=== PATIENT | female | born 1980 | race Caucasian/White ===

== ENCOUNTER 2016-11-06 21:52 | Observation (INO) ==
[2016-11-06] MEDS: Ipratropium/Albuterol Neb 3 ML IH ONE ×2 (22:02→22:22)
--- NOTE | 2016-11-06 22:07 | Emergency Department Note ---
Disposition Clinical Impression: Asthma exacerbation, Hypoxia, Sinus congestion, Viral conjunctivitis Disposition: Still a Patient Condition: Fair Referrals: NO,PCP [Non-Partnered Physician] - Forms: ED Satisfaction Letter Time of Disposition: 23:11 SOB HPI - General Chief Complaint: ED Shortness of Breath/Dyspnea Stated Complaint: CARMITA/Asthma Time Seen by Provider: 11/06/16 21:54 Source: patient, EMS Mode of arrival: EMS Limitations: no limitations Nursing Notes Reviewed: Yes Vital Signs Reviewed: Yes - History of Present Illness Patient is a 35-year-old female with past medical history of hypertension and asthma. She presents today via EMS due to respiratory distress. Patient said that she has been having runny nose, sinus congestion, chest congestion, shortness of breath and wheeze since this morning that has progressively gotten worse. She usually takes home albuterol as needed for shortness of breath and wheeze, however, her home nebulizer is broken so she has not had any of this medication today. She denies any previous episodes of asthma exacerbations that have required her to come to the hospital. She is not on any daily steroids. Patient denies any productive cough, chest pain, fevers, vomiting, abdominal pain, diarrhea, changes in bowel or bladder habits. She does admit to some mild nausea. - Related Data Home Medications Medication Instructions Recorded Confirmed Albuterol Sulfate [Albuterol 2 puff IH PRN PRN 11/22/15 09/17/16 Inhaler] Budesonide/Formoterol 160/4.5 1 puff IH DAILY 11/22/15 09/17/16 [Symbicort 160/4.5] Diazepam [Valium] 10 mg PO BID 11/22/15 09/17/16 Fluticasone Propionate [Flonase 9.9 ml NS DAILY 11/22/15 09/17/16 Allergy Relief] Gabapentin [Gralise] 300 mg PO TID 11/22/15 09/17/16 Levocetirizine Dihydrochloride 5 mg PO DAILY 11/22/15 09/17/16 [Xyzal] Lisinopril-HCTZ 10-12.5 [Prinzide 1 each PO DAILY 11/22/15 09/17/16 10-12.5] Loperamide [Imodium] 2 mg PO Q4HR 11/22/15 09/17/16 Omeprazole [PriLOSEC] 40 mg PO DAILY 11/22/15 09/17/16 OxyCODONE/APAP 5/325 [Percocet 1 each PO DAILY 11/22/15 09/17/16 5/325 MG] Ranitidine HCl [Zantac] 150 mg PO BID 11/22/15 09/17/16 RisperiDONE [RisperDAL] 3 mg PO DAILY 11/22/15 09/17/16 Cyclobenzaprine [Flexeril] 5 mg PO HS 03/19/16 09/17/16 Duloxetine HCl [Cymbalta] 60 mg PO HS 03/19/16 09/17/16 Escitalopram [Lexapro] 10 mg PO DAILY 03/19/16 09/17/16 Previous Rx's Medication Instructions Recorded Cyclobenzaprine [Flexeril] 10 mg PO HS #20 tablet 11/26/15 Ondansetron ODT [Zofran ODT] 4 mg SL Q6HR #12 tab.rapdis 12/17/15 Loratadine/Pseudophed (12 HR) 1 each PO BID #15 tablet 02/27/16 [Claritin D (12HR)] Doxycycline Hyclate 100 mg PO BID #20 tablet. 04/09/16 Nystatin POWDER [Nystop] 1 appl TP BID #30 gm 04/09/16 Diphenoxylate/Atropine [Lomotil 1 each PO QID #10 tablet 04/16/16 2.5 mg/0.025 mg] Promethazine [Phenergan] 12.5 mg PO Q6HR #20 tablet 04/16/16 Promethazine [Phenergan] 25 mg PO Q8HR PRN #12 tablet 06/05/16 Cyclobenzaprine [Flexeril] 10 mg PO TID #30 tablet 07/03/16 Clindamycin [Cleocin] 300 mg PO BID #20 capsule 07/12/16 Mupirocin [Bactroban Oint] 1 appl TP BID #1 tube 07/12/16 Diclofenac Sodium [Voltaren] 50 mg PO Q8HR #30 tablet. 08/10/16 FentaNYL PATCH [Duragesic] 50 mcg TD Q72H #1 patch.td72 08/10/16 Dicyclomine HCl [Bentyl] 20 mg PO DAILY #10 tablet 09/03/16 Cefdinir [Omnicef] 300 mg PO BID 10 Days 09/06/16 Clindamycin [Cleocin] 300 mg PO BID 10 Days 09/06/16 Dicyclomine [Bentyl] 10 mg PO DAILY PRN #30 capsule 09/25/16 Ondansetron ODT [Zofran ODT] 4 mg SL Q6HR #14 tab.rapdis 09/25/16 Allergies Allergy/AdvReac Type Severity Reaction Status Date / Time Amoxicillin [From Augmentin] Allergy Hives Verified 10/07/16 18:38 ciprofloxacin [From Cipro] Allergy Hives Verified 10/07/16 18:38 clavulanic acid Allergy Hives Verified 10/07/16 18:38 [From Augmentin] levofloxacin [From Levaquin] Allergy Nightmare Verified 10/07/16 18:38 Sulfa (Sulfonamide Allergy Hives Verified 10/07/16 18:38 Antibiotics) sulfamethoxazole Allergy Hives Verified 10/07/16 18:38 [From Bactrim] terbinafine Allergy Hives Verified 10/07/16 18:38 trimethoprim [From Bactrim] Allergy Hives Verified 10/07/16 18:38 Constitutional: Denies: fever ENT ED: Reports: congestion. Denies: ear pain, throat pain Cardiovascular: Denies: chest pain, palpitations Respiratory: Reports: cough, dyspnea, wheezes. Denies: sputum production Gastrointestinal: Denies: abdominal pain, nausea, vomiting, diarrhea Genitourinary: Denies: urgency, dysuria, frequency Musculoskeletal: Denies: back pain Integumentary: Denies: rash Past Medical History - Past Medical History Attestation: Yes The following information was validated with the patient. Source: patient Medical history: Reports: asthma, cancer, GERD, hyperlipidemia, hypertension, migraine Surgical history: Reports: cholecystectomy, orthopedic, other, other Psychiatric history: Reports: anxiety, bipolar, depression [employer]PER[employer]ENT [employer]SPORTATION history: Reports: bilateral tubal ligation - Social History Smoking Status: Current every day smoker Smokeless Tobacco Status: No Alcohol use: Reports: none Drug use: Reports: none Physical Exam - General Limitations: no limitations General appearance: alert - Head Head exam: atraumatic, normocephalic, normal inspection - Eye Eye exam: Present: PERRL, EOMI, conjunctival injection (Bulbar conjunctival injection bilaterally, no matting or exudates.). Absent: periorbital swelling - ENT ENT exam: normal oropharynx, mucous membranes moist, other (Sinus congestion and rhinorrhea present) - Neck Neck exam: Present: normal inspection, full ROM, trachea midline - Chest Chest inspection: Present: normal inspection, symmetric chest wall rise - Respiratory Respiratory exam: Present: wheezes (Significant wheeze throughout all lung hicks) - Cardiovascular Cardiovascular exam: Present: normal rhythm, tachycardia, normal heart sounds - Abdominal Exam Abdominal exam: Present: soft, Non-Tender. Absent: tenderness, distention, guarding, rebound, rigidity - Extremities Exam Extremities exam: Present: normal inspection, full ROM. Absent: tenderness, pedal edema - Back Exam Back exam: Present: normal inspection, full ROM. Absent: tenderness - Neurological Exam Neurological exam: Present: alert, oriented X3 - Psychiatric Psychiatric exam: Present: normal affect, normal mood - Skin Skin exam: Present: warm, dry, intact, normal color Course Course Narrative: Patient was tachycardic and hypoxic on presentation. She is placed on nasal cannula oxygen and went from 85% up to 90s. Patient has significant wheezes throughout lung hicks. She also has conjunctival injection bilaterally with clear drainage but no signs of infection. DuoNeb has been ordered 3, Solu- Medrol given. Will obtain EKG, chest x-ray, troponin. This is likely an asthma exacerbation, possibly due to adenovirus due to upper respiratory symptoms, conjunctivitis that is consistent with a viral etiology, significant wheeze on exam. 23:10 Patient signed out to Dr. Moore and Marcio Medrano for further care and dispo. Vital Signs Temperature 98.2 F 11/06/16 21:52 Pulse Rate 101 11/06/16 21:52 Respiratory Rate 26 11/06/16 21:52 Blood Pressure 148/95 11/06/16 21:52 O2 Sat by Pulse Oximetry 85 L 11/06/16 21:52 Temperature 98.2 F 11/06/16 21:52 Pulse Rate 99 11/06/16 22:37 Respiratory Rate 20 11/06/16 22:37 Blood Pressure 141/80 11/06/16 22:37 O2 Sat by Pulse Oximetry 95 11/06/16 22:37 Oxygen Delivery Oxygen Delivery Nasal Cannula Shortness of Breath/Dyspnea - [facility] Narrative Medical decision making narrative: Patient was tachycardic and hypoxic on presentation. She is placed on nasal cannula oxygen and went from 85% up to 90s. Patient has significant wheezes throughout lung hicks. She also has conjunctival injection bilaterally with clear drainage but no signs of infection. DuoNeb has been ordered 3, Solu- Medrol given. Will obtain EKG, chest x-ray, troponin. This is likely an asthma exacerbation, possibly due to adenovirus due to upper respiratory symptoms, conjunctivitis that is consistent with a viral etiology, significant wheeze on exam. 23:10 Patient signed out to Dr. Moore and Marcio Medrano for further care and dispo. - Medical Records Medical records reviewed: Yes I reviewed the patient's medical records. - Lab Data Lab results reviewed: Yes I reviewed the patient's lab results. Result diagrams: 11/06/16 22:48 11/06/16 22:48 Lab Results 11/06/16 11/06/16 Range/Units 22:48 22:48 WBC 11.4 H (4.3-11.1) K/mcL RBC 4.68 (3.82-4.97) M/mcL Hgb 14.2 (11.5-15.4) g/dL Hct 44.8 (35.3-44.9) % MCV 95.7 (83.0-100.0) fL MCH 30.3 (28.0-33.3) pg MCHC 31.7 (31.6-35.5) g/dL RDW 13.9 (11.5-14.5) % Plt Count 218 (140-400) K/mcL MPV 10.4 (9.4-12.4) fL Immature Gran % 0.4 (0-4) % Seg Neutrophils % 57.3 % Lymphocytes % 35.0 % Monocytes % 5.7 % Eosinophils % 1.1 % Basophils % 0.5 % Neutrophils # 6.5 (1.6-8.9) K/mcL Lymphocytes # 4.0 (0.6-4.6) K/mcL Monocytes # 0.7 (0.0-1.3) K/mcL Eosinophils # 0.1 (0.0-0.6) K/mcL Basophils # 0.1 (0.0-0.2) K/mcL Sodium 138 (136-145) mEq/L Potassium 4.0 (3.5-4.5) mEq/L Chloride 103 (98-109) mEq/L Carbon Dioxide 24 (19-29) mEq/L BUN 9 (7-20) mg/dL Creatinine 0.69 (0.57-1.11) mg/dL Est GFR ( Amer) > 60 (> 60) Est GFR (Non-Af Amer) > 60 (> 60) BUN/Creatinine Ratio 13 (6-26) Glucose 161 H (70-99) mg/dL Calculated Osmolality 288 (280-300) Calcium 9.6 (8.6-10.8) mg/dL - Radiology Data Radiology results reviewed: Yes I reviewed the patient's radiology results. - EKG Data EKG attestation: Yes I reviewed and interpreted this EKG. EKG results narrative: 11/06/2016 at 22:00. Sinus rhythm. Normal axis. Rate 95. QTc 42. QRS 86. No acute ST elevation or depression. S.B.A.R. - S.B.A.R. Situation: Demographics, MOA Background: Presenting Complaint, Relevant PMH, Meds, & Allergies Assessment: Vital Signs, Course and respsone to treatment, Exam Concerns, Patient/Family Expectation, Pertinant Lab Results, Outstanding Labs Recommendation: Barrier(s) to disposition, Recommendation based on pending studies, treatments, or consults S.B.A.R. Report Given to: Dr. Moore and Marcio Medrano SRiriB.AHawk Repor Time: 23:10 Attestation Statement - Attestation Attestation: I examined this patient and my medical decision-making was reviewed with the POSTAL SUPPORT EMPLOYEE/PA/Advanced Practice Nurse/Resident Physician. I agree with the documented findings, disposition and treatment plan as described except to the extent set forth below. Patient presents to the emergency department difficulty in breathing. Patient complains of upper respiratory symptoms of congestion cough today. History of asthma. On examination she is tachypneic. Audibly wheezing. Hypoxic at 85% on room air. Obese. Plan. Likely URI exacerbating her asthma. steroids. X- ray and labs. Reevaluate.
[2016-11-06] MEDS: methylPREDNISolone 125 MG/2 ML VIAL IVP ONE ×2 (22:18→22:31)
[2016-11-06 22:57] LABS: Basophils # 0.1 K/mcL (0.0-0.2); Basophils % 0.5 %; Eosinophils # 0.1 K/mcL (0.0-0.6); Eosinophils % 1.1 %; Hematocrit 44.8 % (35.3-44.9); Hemoglobin 14.2 g/dL (11.5-15.4); Immature Granulocytes % 0.4 % (0-4); Mean Corpuscular HGB Conc 31.7 g/dL (31.6-35.5); Mean Corpuscular Hemoglobin 30.3 pg (28.0-33.3); Mean Corpuscular Volume 95.7 fL (83.0-100.0); Mean Platelet Volume 10.4 fL (9.4-12.4); Monocytes # 0.7 K/mcL (0.0-1.3); Monocytes % 5.7 %; Neutrophils # 6.5 K/mcL (1.6-8.9); Platelet Count 218 K/mcL (140-400); Red Blood Count 4.68 M/mcL (3.82-4.97); Red Cell Distribution Width 13.9 % (11.5-14.5); Segmented Neutrophils % 57.3 %
[2016-11-06 23:09] LABS: BUN/Creatinine Ratio 13 (6-26); Blood Urea Nitrogen 9 mg/dL (7-20); Calcium 9.6 mg/dL (8.6-10.8); Carbon Dioxide 24 mEq/L (19-29); Chloride 103 mEq/L (98-109); Glucose 161 mg/dL (70-99); Osmolality,Calculated 288 (280-300); Sodium 138 mEq/L (136-145); eGFR For African Americans > 60 (> 60); eGFR For Non-African Americans > 60 (> 60)
[2016-11-07] MEDS ORDERED: Naloxone 0.4 MG/ML INJ IVP PRN (02:27)
[2016-11-07] MEDS ORDERED: Albuterol Neb 0.63 MG/3 ML VIAL IH PRN (02:33)
--- NOTE | 2016-11-07 02:38 | Internal Med History&Physical ---
Date of Encounter: 11/07/16 Time of Encounter: 02:37 Assessment and Plan (1) Asthma exacerbation Current visit: Yes Status: Acute Treat with systemic steroids - pt received IV Solu-Medrol. As the patient is improving, recheck to oral prednisone. Continue bronchodilators. If the patient improves, consider discharge later in the day. (2) Hyperglycemia Current visit: Yes Status: Acute Patient has significant family history of diabetes mellitus. Will check for hemoglobin A1c. (3) Hypertension Current visit: Yes Status: Acute Continue home antihypertensives Qualifiers: Hypertension type: essential hypertension Qualified Code(s): I10 - Essential (primary) hypertension (4) Tobacco abuse Current visit: Yes Status: Chronic Advised smoking cessation. (5) GERD (gastroesophageal reflux disease) Current visit: Yes Status: Chronic Continue omeprazole Qualifiers: Esophagitis presence: esophagitis presence not specified Qualified Code(s) : K21.9 - Gastro-esophageal reflux disease without esophagitis Internal Medicine - H&P: HPI Chief complaint: Shortness apparent Admitted From: Emergency Dept Plans for Post Hospital Care: Home History of present illness: Ms. Abbott is a 35 year old female with past medical history significant for asthma, HTN. She present to the emergency department with history of fairly sudden onset of shortness of breath when she was at home. She reports feeling short of breath with wheezing. She reports h/o upper respiratory tract infection for a few days. She reports cough with no significant expectation. She denies chest pain, fever, chills, nausea, vomiting. She denies abdominal pain, urinary or bowel symptoms. She was evaluated in the emergency department and that was thought to have acute exacerbation of asthma. She was treated with bronchodilators and intravenous steroids. She felt significantly improved after treatment. She is admitted to the hospitalist was for further management. Past Med Surg Social Fam HX - Past Medical History Medical history: asthma, cancer, GERD, hyperlipidemia, hypertension, migraine Psychiatric history: anxiety, bipolar, depression - Past Surgical History Surgical History: cholecystectomy, orthopedic, other, other - Social History Smoking Status: Current every day smoker Packs per day: 1 Smokeless Tobacco Status: No Alcohol use: none Drug use: none - Family History Mother Living Status: Still Living Hx Family Cardiac Disorders: Yes (CHF) Hx Family Respiratory Disorders: Yes Internal Medicine - H&P: Meds Diazepam [Valium] 10 mg PO TID 11/22/15 [History] Fluticasone Propionate [Flonase Allergy Relief] 9.9 ml NS DAILY 11/22/15 [ History] Gabapentin [Gralise] 300 mg PO TID 11/22/15 [History] Levocetirizine Dihydrochloride [Xyzal] 5 mg PO HS 11/22/15 [History] Loperamide [Imodium] 2 mg PO Q4HR PRN 11/22/15 [History] Omeprazole [PriLOSEC] 40 mg PO DAILY 11/22/15 [History] OxyCODONE/APAP 5/325 [Percocet 5/325 MG] 10 mg PO TID 11/22/15 [History] Ranitidine HCl [Zantac] 150 mg PO BID 11/22/15 [History] RisperiDONE [RisperDAL] 3 mg PO DAILY 11/22/15 [History] Cyclobenzaprine [Flexeril] 5 mg PO HS 03/19/16 [History] Duloxetine HCl [Cymbalta] 60 mg PO HS 03/19/16 [History] Escitalopram [Lexapro] 10 mg PO DAILY 03/19/16 [History] Albuterol Neb [AccuNeb] 1 aerosol .ROUTE TID PRN 11/07/16 [History] Amoxicillin/Clavulanate [Augmentin] 875 mg PO BIDWM 11/07/16 [History] Ciprofloxacin/Dex *EAR* Susp [Ciprodex *EAR* Susp] 4 drop LEFT EAR BID 11/07/16 [History] Lisinopril [Zestril] 20 mg PO DAILY 11/07/16 [History] Naproxen [Naprosyn] 500 mg PO DAILY 11/07/16 [History] Allergies Amoxicillin [From Augmentin] Allergy (Verified 10/07/16 18:38) Hives ciprofloxacin [From Cipro] Allergy (Verified 10/07/16 18:38) Hives clavulanic acid [From Augmentin] Allergy (Verified 10/07/16 18:38) Hives levofloxacin [From Levaquin] Allergy (Verified 10/07/16 18:38) Nightmare Sulfa (Sulfonamide Antibiotics) Allergy (Verified 10/07/16 18:38) Hives sulfamethoxazole [From Bactrim] Allergy (Verified 10/07/16 18:38) Hives terbinafine Allergy (Verified 10/07/16 18:38) Hives trimethoprim [From Bactrim] Allergy (Verified 10/07/16 18:38) Hives All Systems PM: A 10-system review of systems was performed and is negative for pertinent findings except as documented above in the HPI. - Constitutional Vitals: Temp Pulse Resp BP Pulse Ox 98.1 F 83 16 117/63 96 11/07/16 01:48 11/07/16 01:48 11/07/16 01:48 11/07/16 01:48 11/07/16 01:48 Exam: General: Not in acute distress at the time of my evaluation. Obese HEENT: Oral mucosa is moist. No conjunctival palor or scleral icterus Neck: No obvious neck swellings Lungs: Bilateral air entry present. No significant wheeze Cardiac: Regular rate and rhythm. No significant murmurs Abdomen: Soft, non tender. Bowel sounds present Genitourinary: No fleming catheter Neurological: Alert and oriented. No gross localizing deficits Psych: Not aggressive or agitated Extremities: Mild leg edema Skin: No generalized rash Internal Med - H&P Results - Labs CBC & Chem 7: 11/06/16 22:48 11/06/16 22:48 - Impressions ITS Impressions Chest X-Ray 11/06/16 21:54 IMPRESSION: No acute cardiopulmonary disease. D/ / Edinson Cano MD / Edinson Cano MD Interpreting Provider: Edinson Cano MD - VTE Reasons for not Prescribing Prophylaxis: Treatment not Indicated - Low risk for VTE
[2016-11-07] MEDS: Acetaminophen 325 MG TABLET PO PRN ×2 (03:32→15:13)
--- NOTE | 2016-11-07 05:00 | Emergency Department Note ---
START Narrative - START START: For this encounter, I have reviewed the resident, WELDING MACHINE OPERATOR AR[employer], or PA documentation, treatment plan, and medical decision making; and I have had face to face time with this patient. 54-year-old male received in signout from Dr. Trivedi pending admission to the hospital for acute asthmatic exacerbation. Patient was admitted to the hospital without difficulty. Patient denied further complaints or concerns. Patient satting well on nasal cannula oxygen however she states that she desaturated when removed from O2.
[2016-11-07 05:44] LABS: Hemoglobin A1C 5.6 %
[2016-11-07] MEDS: *HR* OxyCODONE/APAP 5/325 TABLET PO SCH ×2 (07:35→15:09)
[2016-11-07] MEDS: diazePAM 10 MG TABLET PO SCH ×2 (07:35→15:09)
[2016-11-07] MEDS: Gabapentin 300 MG CAPSULE PO SCH ×2 (07:35→15:09)
[2016-11-07] MEDS ORDERED: Lisinopril 20 MG TABLET PO SCH (09:00)
[2016-11-07] MEDS ORDERED: NON-FORMULARY MEDICATION 1 EACH EACH (Ranitidine Hcl [Zantac] 150 MG) PO SCH (09:00)
[2016-11-07] MEDS ORDERED: RisperiDAL 3 MG TABLET PO SCH (09:00)
[2016-11-07] MEDS ORDERED: predniSONE 20 MG TABLET PO SCH (09:00)
[2016-11-07] MEDS ORDERED: Fluticasone Propionate Nasal 50 MCG/SPRAY BOTTLE NS SCH (09:00)
[2016-11-07] MEDS ORDERED: Ciprofloxacin/Dex *EAR* Susp 7.5 ML BOTTLE LEFT EAR SCH (09:00)
[2016-11-07] MEDS: Ipratropium/Albuterol Neb 3 ML IH PRN ×2 (10:35→16:24)
--- NOTE | 2016-11-07 10:45 | Electrocardiograph Report ---
[place] [id number] Test Date: 2016-11-06 Pat Name: Conchita Abbott Department: 105 Room: 3B Gender: F Machinery Rigger: : [id number] Requested By: Renetta See Order Number: [id number] Reading MD: Conchita Sterling Measurements Intervals Lane Rate: 95 P: 16 TN: 156 QRS: 4 QRSD: 86 T: 40 QT: 350 QTc: 402 Interpretive Statements SINUS RHYTHM LOW QRS VOLTAGE IN PRECORDIAL LEADS [QRS DEFLECTION < 1.0 mV IN CHEST LEADS] Electronically Signed On 11-07-2016 10:43:38 EST by Conchita Sterling
[2016-11-07 11:02] VITALS: BP 151/72
[2016-11-07] MEDS ORDERED: Nicotine 21 MG PATCH.TD24 TD SCH (12:00)
[2016-11-07] MEDS ORDERED: Nystatin POWDER 30 GM BOTTLE TP SCH (15:30)
--- NOTE | 2016-11-07 15:31 | Discharge Summary ---
Date of Encounter: 11/07/16 Time of Encounter: 10:20 - Discharge Diagnosis (1) Sinusitis Priority: Primary Status: Acute Comments: Continue Augmentin for 7 days Qualifiers: Sinusitis location: unspecified location Chronicity: unspecified Qualified Code(s): J32.9 - Chronic sinusitis, unspecified (2) Asthma exacerbation Priority: Primary Status: Acute Comments: Improved D/C home with Albuterol MDI prn, nebs prn, prednisone taper Smoking cessation discussed extensively, patient appeared non-chalant to quit NRT prescribed Hypoxia improved, saturating 94-95% on room air Encourage weight loss Patient stated she had a PFT done, seen, reversible obstructive airway pattern, follow up with PCP She also stated insurance does not cover symbicort, changed to advair Resume other home meds (3) Hyperglycemia Priority: Primary Status: Acute Comments: Secondary to steroids A1C checked was 5.6% patient with hx of pre-Dm and strong family hx of DM Lifestyle modification encouraged (4) Hypertension Priority: Secondary Status: Chronic Comments: Continue home meds Qualifiers: Hypertension type: essential hypertension Qualified Code(s): I10 - Essential (primary) hypertension (5) Viral conjunctivitis Priority: Secondary Status: Chronic (6) GERD (gastroesophageal reflux disease) Priority: Secondary Status: Chronic Qualifiers: Esophagitis presence: esophagitis presence not specified Qualified Code(s) : K21.9 - Gastro-esophageal reflux disease without esophagitis (7) Tobacco abuse Priority: Secondary Status: Chronic - Discharge Medications Home Medications: Diazepam [Valium] 10 mg PO TID 11/22/15 [History] Gabapentin [Gralise] 300 mg PO TID 11/22/15 [History] Levocetirizine Dihydrochloride [Xyzal] 5 mg PO HS 11/22/15 [History] Loperamide [Imodium] 2 mg PO Q2H PRN 11/22/15 [History] Omeprazole [PriLOSEC] 40 mg PO DAILY 11/22/15 [History] OxyCODONE/APAP 5/325 [Percocet 5/325 MG] 1 tab PO Q8H PRN 11/22/15 [History] Ranitidine HCl [Zantac] 150 mg PO BID 11/22/15 [History] RisperiDONE [RisperDAL] 3 mg PO HS 02/23/16 [History] Cyclobenzaprine [Flexeril] 5 mg PO HS 03/19/16 [History] Duloxetine HCl [Cymbalta] 60 mg PO HS 03/19/16 [History] Escitalopram [Lexapro] 10 mg PO DAILY 03/19/16 [History] Albuterol Neb [AccuNeb] 0.63 mg IH Q4H PRN #20 vial.neb 11/07/16 [Rx] Albuterol Neb [AccuNeb] 0.63 mg IH TID PRN 11/07/16 [History] Albuterol Sulfate [Albuterol Inhaler] 1 puff IH Q4H PRN #1 inhaler 11/07/16 [Rx] Budesonide/Formoterol 160/4.5 [Symbicort 160/4.5] 2 puff IH BID 11/07/16 [ History] Ciprofloxacin/Dex *EAR* Susp [Ciprodex *EAR* Susp] 4 drop LEFT EAR BID 11/07/16 [History] Fluconazole [Diflucan] 150 mg PO QWEEK 11/07/16 [History] Fluticasone Propionate Nasal [Flonase] 50 mcg NS DAILY #1 bottle 11/07/16 [Rx] Fluticasone/Salmeterol [Advair 250-50 Diskus] 1 each IH BID #2 blst.w.dev [Rx] Lisinopril [Zestril] 20 mg PO DAILY 11/07/16 [History] Naproxen [Naprosyn] 500 mg PO DAILY 11/07/16 [History] Nicotine Patch [Nicoderm] 21 mg TD DAILY #14 patch.td24 11/07/16 [Rx] Nystatin POWDER [Nystop] 1 appl TP TID #2 bottle 11/07/16 [Rx] Ondansetron HCl [Zofran] 4 mg PO Q8H PRN 11/07/16 [History] Oxybutynin [Ditropan] 5 mg PO BID 11/07/16 [History] PredniSONE 40 mg PO DAILY #15 tablet 11/07/16 [Rx] SUMAtriptan [Imitrex] 50 mg PO BID PRN 11/07/16 [History] Allergies/Adverse Reactions: Allergies Amoxicillin [From Augmentin] Allergy (Verified 10/07/16 18:38) Hives ciprofloxacin [From Cipro] Allergy (Verified 10/07/16 18:38) Hives clavulanic acid [From Augmentin] Allergy (Verified 10/07/16 18:38) Hives levofloxacin [From Levaquin] Allergy (Verified 10/07/16 18:38) Nightmare Sulfa (Sulfonamide Antibiotics) Allergy (Verified 10/07/16 18:38) Hives sulfamethoxazole [From Bactrim] Allergy (Verified 10/07/16 18:38) Hives terbinafine Allergy (Verified 10/07/16 18:38) Hives trimethoprim [From Bactrim] Allergy (Verified 10/07/16 18:38) Hives Date of admission: 11/07/16 00:13 Primary care physician: Zana Joe DO Discharging clinician: Rommel Gutierrez Anticipated date of discharge: 11/07/16 - Patient Status Disposition: Home, Self-Care Condition: Fair Functional capacity at discharge: independent ambulation Overall status at discharge: patient is progressing back to baseline - Discharge Instructions Follow Up With: Zana Joe DO [Primary Care Provider] - - Diet and Activity Activity: resume usual activities as tolerated Diet: low fat, low cholesterol, low salt diet Interval History: See below Hospital course: Ms. Abbott is a 35 year old female with Asthma, Tobacco abuse, Morbid Obesity, Bipolar disorder placed on observation for bronchial asthma exacerbation She is seen at bedside, ambulatory, not wheezing and not hypoxic She is stable for d/c home Immunization is up to date Details as discussed in diagnosis/plan Plan of care discussed, verbalized understanding Time spent discussing smoking cessation with patient: 3 to 10 minutes (4 minutes spent to discusss tobacco cessation) - Time Spent with Patient Total time spent providing and/or coordinating discharge services: Less than 30 minutes - Constitutional Vitals: Temp Pulse Resp BP Pulse Ox 98.1 F 93 17 151/72 93 L 11/07/16 11:01 11/07/16 11:01 11/07/16 11:01 11/07/16 11:01 11/07/16 11:01 General appearance: Present: A&O X 3, morbidly obese, pleasant, no acute distress - Head Head exam: Present: atraumatic, normocephalic - Eye Eye exam: Present: PERRL, conjuntiva pink, sclera anicteric Pupils: Present: PERRL - Neck Neck exam general surgery: Present: supple, trachea midline. Absent: lymphadenopathy - Respiratory Respiratory exam: Present: CTAB. Absent: accessory muscle use, rales, rhonchi, wheezes - Cardiovascular Cardiovascular exam: Present: RRR, +S1, +S2. Absent: diastolic murmur, gallop, rubs, systolic murmur - GI/Abdominal GI/Abdominal exam: Present: normal bowel sounds, soft, no peritoneal signs. Absent: distended, tenderness - Extremities Exam Extremities exam: Present: warm, radial pulses palpable and symetrical. Absent : calf tenderness, cyanotic, pedal edema - Neurological Exam Neurological exam: Present: CN II-XII intact, oriented X3, no focal deficits. Absent: pronater drift, facial droop, speech deficit - Skin Skin exam: Present: dry - VTE Reasons for not Prescribing Prophylaxis: Treatment not Indicated - Low risk for VTE
[2016-11-07] MEDS ORDERED: SUMAtriptan succinate 50 MG TABLET PO ONE (16:50)
[2016-11-07] MEDS ORDERED: (Levocetirizine Dihydrochloride [Xyzal] 5 MG) PO SCH (21:00)
== END 2016-11-07 18:03 | disposition home or self-care (01) ==
LOC: EMEROO 21:52 → 3BNU 21:52
PROVIDERS: ADMIT Hospitalist; ATTEND Nurse Practitioner Family